=== PATIENT | female | born 1955 | race Caucasian/White ===

== ENCOUNTER → 2017-05-30 | Outpatient (CLI) | payer OTHER ==
[~2017-05-30] MED LIST: ASPI325T80 PO; FENO145T32 PO; HYDR25TA6 PO; IBUP1TAB PO; LISI-167 PO; LOVA40TA2 PO; MULT1TAB60 PO; NIAC500C8 PO; TURM5000 PO
== END | disposition home or self-care (01) ==
LOC: CFH 13:51
PROVIDERS: ATTEND Family Medicine
DX: Z12.31 Encounter for screening mammogram for malignant neoplasm of breast (principal)
CPT/HCPCS: G0202

== ENCOUNTER → 2018-05-06 | Outpatient (CLI) | payer OTHER | END | disposition home or self-care (01) | LOC: CFH 09:19 | PROVIDERS: ATTEND Family Medicine | DX: K80.20 Calculus of gallbladder without cholecystitis without obstruction (principal) | CPT/HCPCS: 76705 ==